=== PATIENT | male | born 1995 | race Caucasian/White ===

== ENCOUNTER 2018-12-05 02:05 | Emergency (ER) | payer OTHER ==
[~2018-12-05] VITALS: Ht 182.9 cm; Wt 90.0 kg
[2018-12-05] MEDS ORDERED: KEFLEX500 M1 PO (02:58)
[2018-12-05 03:10] VITALS: BP 120/68
== END 2018-12-05 03:10 | disposition home or self-care (01) ==
LOC: M.ERS 02:05
DX: S61.411A Laceration without foreign body of right hand, initial encounter (principal); Z91.048 Other nonmedicinal substance allergy status; Z91.010 Allergy to peanuts; Z91.018 Allergy to other foods; W22.8XXA Striking against or struck by other objects, initial encounter; Y99.0 Civilian activity done for income or pay; Y92.89 Other specified places as the place of occurrence of the external cause; Y99.8 Other external cause status